=== PATIENT | male | born 1945 | race Caucasian/White ===

== ENCOUNTER → 2018-03-16 | Outpatient (CLI) | payer BC, OTHER ==
--- NOTE | 2018-03-29 23:48 | ONC ---
[address] [address] RADIATION ONCOLOGY NOTE Name: APARNA FLORES Room: [facility]#: [id number] Admission: 03/16/18 Attend Phys: Galdino Guerrero MD Discharge: Date of : 47 Report #: [id number] THIS REPORT FOR: //name// CC: Galdino Rivas MD DATE OF SERVICE: 03/16/2018 RADIATION ONCOLOGY PROCEDURE NOTE [facility] phone is [phone]. DATE OF PROCEDURE: 03/16/2018. REFERRING PHYSICIANS: Include: 1. Jorden Palmer M.D. 2. Govind Kulkarni DO. 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 He completed radiation treatments for that on 06/02/2016 and he also received stereotactic radiation treatments for a presumed early lung cancer by Dr. Geoff Edwards and this stereotactic treatment was performed on 04/12/2016. PROCEDURE: Nasopharyngolaryngoscopy. FINDINGS: On nasopharyngolaryngoscopy, after 2% viscous lidocaine was given orally and given via the right nostril with a cotton swab, there were no visible lesions in the right nasal cavity. There were no visible lesions in the nasopharynx or posterior oropharynx. The true vocal cords were normally mobile bilaterally. There was no evidence of head and neck cancer. There was no evidence of nasal cavity cancer. Thank you for allowing me to participate in the care of this patient. <ELECTRONICALLY SIGNED> By: Galdino Guerrero MD 03/29/18 2348 [id number] [id number] Guerrero MD /nt
--- NOTE | 2018-03-29 23:57 | ONC ---
[place] [address] RADIATION ONCOLOGY NOTE Name: APARNA FLORES Room: [facility]#: [id number] Admission: 03/16/18 Attend Phys: Galdino Guerrero MD Discharge: Date of : 47 Report #: [id number] THIS REPORT FOR: //name// CC: Galdino Rivas MD DATE OF SERVICE: 03/16/2018 REFERRING PHYSICIANS: 1. Govind Kulkarni DO 2. Jorden Palmer MD [facility] phone is [phone]. PRIMARY SITE AND HISTOPATHOLOGY: The patient received definitive radiation therapy for a stage I invasive poorly differentiated squamous cell carcinoma that involved the right nasal cavity. The patient completed radiation treatments on 06/02/2016 to that area. He also received stereotactic radiation treatments for a presumed early lung cancer and that was treated by Dr. Geoff Edwards. That treatment was completed on 04/12/2016. INTERVAL NOTE: The patient is eating a regular diet. He tries to avoid sweets. He has a lack of taste for sweets except strawberries. He is able to eat strawberries, at times. He likes salty foods and that includes food such as soups, sausage, and eggs. His nose tends to be on the dry side. He uses Aquaphor to help with moisturizing the skin around the nose area. MEDICATIONS: Singulair, Claritin as needed, simvastatin. SOCIAL HISTORY: The patient is retired from [employer]. Cigarettes: he quit smoking in October, he smoked about 1 pack per day for about 30 years prior to that time. REVIEW OF SYSTEMS: RESPIRATORY: The patient was not short of breath during his followup appointment. GASTROINTESTINAL: The patient has a good appetite. PHYSICAL EXAMINATION: VITAL SIGNS: The patient weighed 154.5 pounds on 03/16/2018. He was 159 pounds on 09/13/2018. and he said that he had weight loss because his used to cook their meals regularly but she cannot cook meals since she had shoulder surgery recently. Then, on 03/16/2018, blood pressure was 118/64, [place] [address] RADIATION ONCOLOGY NOTE Name: APARNA FLORES [place] Room: [facility]#: [id number] Admission: 03/16/18 Attend Phys: Galdino Guerrero MD Discharge: Date of : 47 Report #: [id number], respirations 18, oxygen saturation 96%. LYMPH NODES: He had no palpable cervical or supraclavicular lymphadenopathy. HEART: Had a regular rate and rhythm without murmur. LUNGS: were clear to auscultation. HEAD, EYES, EARS, NOSE AND THROAT: Mouth had no suspicious visible lesions or suspicious palpable lesions. Nasal cavity on the right side, had no suspicious visible lesions. The nasal cavity on the left side had no suspicious visible lesions. On nasopharyngolaryngoscopy, after application of 2% viscous lidocaine orally and 2% viscous lidocaine to the right nostril, there were no suspicious visible lesions in the right nostril or right nasal cavity. There were no visible lesions in the nasopharynx, Posterior pharynx, and the true vocal cords were normally mobile bilaterally. CARDIOVASCULAR: Heart had a regular rate and rhythm without murmur. LUNGS: were clear to auscultation. LABORATORY DATA: From 02/28/2018, TSH was 1.11. Sodium 139, potassium 4.3, BUN was 16, creatinine 1.01. RADIOLOGIC DATA: From 03/12/2018, neck CT did not reveal any evidence of recurrent tumor or metastatic disease. 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 ASSESSMENT AND PLAN: 1. History of nasal cavity cancer- There is no evidence of nasal cavity cancer at this time. A requisition will be written for a basic metabolic panel and a neck CT scan in August 2018. The patient will be asked to schedule a followup appointment to see me afterwards. 2. History of lung cancer- There is no evidence of lung cancer at this time. The patient will be given a requisition for a basic metabolic panel and also TSH in July of 2018 or August of [address] in August 2018. He will be asked to schedule a followup appointment to see me afterwards. The patient is trying to receive VA benefits for being exposed to Agent Pointblank and that could possibly be partly related to his lung cancer and that is listed on the VA website as one of the possible issues people can have after Agent Pointblank exposures. 3. Dental care- The patient is using fluoride trays with 1.1% PreviDent gel. He has been given prescriptions in the past [place] [address] RADIATION ONCOLOGY NOTE Name: APARNA FLORES Room: [facility]#: [id number] Admission: 03/16/18 Attend Phys: Galdino Guerrero MD Discharge: Date of : 47 Report #: [id number] Thank you for allowing me to participate in the care of this patient. <ELECTRONICALLY SIGNED> By: Galdino Guerrero MD 03/29/18 2357 1135 1234Dgriselda Guerrero MD /nt
== END ==
LOC: M.RTH 03-12 15:00
DX: C34.90 Malignant neoplasm of unspecified part of unspecified bronchus or lung (principal); Z85.22 Personal history of malignant neoplasm of nasal cavities, middle ear, and accessory sinuses

== ENCOUNTER → 2018-09-07 | Outpatient (CLI) | payer BC ==
--- NOTE | 2018-09-17 02:22 | ONC ---
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 He completed radiation treatments for that on 06/02/2016. He also received stereotactic radiation treatment for a presumed early lung cancer by Dr. Geoff Edwards and that stereotactic treatment was performed on 04/12/2016. PROCEDURE: Nasopharyngolaryngoscopy. FINDINGS: On nasopharyngolaryngoscopy after 2% viscous lidocaine was given orally and via the right nostril with a cotton swab, there were no visible lesions in the right nasal cavity. There were no visible lesions in the nasopharynx or posterior oropharynx and the true vocal cords were normally mobile bilaterally. There was no evidence of head and neck cancer. There is no evidence of nasal cavity cancer. Thank you for allowing me to participate in the care of this patient. <ELECTRONICALLY SIGNED> By: Galdino Guerrero MD 09/17/18 0222 1100 0015Galdino Guerrero MD /nt
--- NOTE | 2018-09-17 02:27 | ONC ---
[address] [address] RADIATION ONCOLOGY NOTE Name: MARKAPARNA D Room: [facility]#: [id number] Admission: 09/07/18 Attend Phys: Galdino Guerrero MD Discharge: Date of : 47 Report #: [id number] THIS REPORT FOR: //name// CC: Galdino Palmer MD DATE OF SERVICE: 09/07/2018 [facility] phone is [phone]. REFERRING PHYSICIANS: Jorden Palmer MD; Govind Kulkarni DO and Geoff Edwards MD. PRIMARY SITE AND HISTOPATHOLOGY: The patient received definitive radiation therapy for a stage I invasive poorly differentiated squamous cell carcinoma that involved the right nasal cavity. The patient completed radiation treatments on 06/02/2016 to that area. He also received stereotactic radiation treatments for a presumed early lung cancer that was treated by Dr. Geoff Edwards, and that treatment was completed on 04/12/2016. INTERVAL NOTE: The patient is eating a regular diet. He tries to avoid sweet foods. He likes to eat salty foods. MEDICATIONS: Include simvastatin and aspirin. SOCIAL HISTORY: The patient is retired from [employer]. Cigarettes: he quit smoking in October 2004. He smoked about 1 pack per day for about 30 years prior to that time. REVIEW OF SYSTEMS: RESPIRATORY: The patient was not short of breath during his followup appointment. GASTROINTESTINAL: The patient has a good appetite. PHYSICAL EXAMINATION: VITAL SIGNS: The patient weighed 160.2 pounds on 09/07/2018 and 154.5 pounds on 03/16/2018. On 09/07/2018, blood pressure was 128/73, pulse 91, respirations 20, oxygen saturation 100%. LYMPH NODES: He had no palpable cervical or supraclavicular lymphadenopathy. HEAD, EYES, EARS, NOSE AND THROAT: Mouth had no suspicious visible lesions or suspicious palpable lesions. Nasal cavity on the right side, had no suspicious visible lesions. The nasopharynx had no visible lesions and that was done after application of 2% viscous lidocaine orally and 2% [place] [address] RADIATION ONCOLOGY NOTE Name: APARNA FLORES Room: [facility]#: [id number] Admission: 09/07/18 Attend Phys: Galdino Guerrero MD Discharge: Date of : 47 Report #: [id number] nostril. The right nasal cavity had no suspicious visible lesions and the nasopharynx had no suspicious visible lesions. The oropharynx had no suspicious visible lesions. True vocal cords were normally mobile bilaterally with no visible lesions. CARDIOVASCULAR: Heart had a regular rate and rhythm without murmur. LUNGS: were clear to auscultation. LABORATORY DATA: From 09/03/2018, sodium was 138, potassium 4.4, BUN 14, creatinine 0.98. TSH was 1.18, which was within normal limits. RADIOLOGIC DATA: Neck and chest CT from 09/03/2018, neck showed previous treatment with no evidence of tumor recurrence or cervical lymphadenopathy. 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 ASSESSMENT AND PLAN: 1. History of nasal cavity cancer- There is no evidence of head and neck cancer at this time. A requisition was written for a basic metabolic panel and TSH as well as a neck CT in February 2019. The patient was asked to schedule a followup appointment to see me afterwards. 2. History of lung cancer-A Basic metabolic panel was ordered as well as a chest CT in February 2019. The patient was asked to schedule a followup appointment to see me afterwards. 3. Dental care. The patient was given a refill for his 1.1% fluoride to use with his fluoride trays. Thank you for allowing me to participate in the care of this patient. <ELECTRONICALLY SIGNED> By: Galdino Guerrero MD 09/17/18 0227 1108 0022Dgrsielda Guerrero MD /nt
== END ==
LOC: M.RTH 04:43
DX: Z08 Encounter for follow-up examination after completed treatment for malignant neoplasm (principal); Z85.22 Personal history of malignant neoplasm of nasal cavities, middle ear, and accessory sinuses; Z85.118 Personal history of other malignant neoplasm of bronchus and lung

== ENCOUNTER → 2019-03-08 | Outpatient (CLI) | payer BC ==
--- NOTE | ~2019-03-08 | ONC ---
[place] [address] RADIATION ONCOLOGY NOTE Name: APARNA FLORES Room: [facility]#: [id number] Admission: 03/08/19 Attend Phys: Galdino Guerrero MD Discharge: Date of : 47 Report #: [id number] THIS REPORT FOR: //name// CC: Galdino Kulkarni DATE OF SERVICE: 03/08/2019 REFERRING PHYSICIANS: Include Jorden Palmer MD; Geoff Edwards MD; Govind Kulkarni DO. [facility] phone is [phone]. PRIMARY SITE AND HISTOPATHOLOGY: The patient received definitive radiation therapy for stage 1 invasive poorly differentiated squamous cell carcinoma that involved the right nasal cavity. The patient also completed radiation treatments on 06/02/2016 to that area. He also received stereotactic radiation treatments for presumed early lung cancer that was treated by Dr. Geoff Edwards and that treatment was completed on 04/12/2016. INTERVAL NOTE: The patient indicated that he is eating a regular diet. He tends to avoid sweet foods. He tends to like salty foods more. MEDICATIONS: Include simvastatin and aspirin. SOCIAL HISTORY: The patient is retired from [employer]. Cigarettes, he quit smoking in 10/2004, he smoked about 1 pack per day for about 30 years prior to that time. REVIEW OF SYSTEMS: RESPIRATORY: The patient was not short of breath during his followup appointment. GASTROINTESTINAL: The patient has a good appetite. PHYSICAL EXAMINATION: VITAL SIGNS: The patient weighed 157.4 pounds on 03/08/2019. He bma108.2 pounds in 08/2018. He was 154.5 pounds on 03/16/2018. On 03/08/2019, blood pressure is 154/71, pulse 84, respirations 18, oxygen saturation was 97%. LYMPH NODES: The patient had no palpable cervical or supraclavicular lymphadenopathy. HEAD, EYES, EARS, NOSE, AND MOUTH: Mouth had no suspicious visible lesions or suspicious palpable lesions. The patient's teeth looked like they were in good shape. The right nasal cavity had no suspicious visible lesions. The left nasal cavity had no suspicious visible lesions. HEART: Had a regular rate and rhythm without murmur. LUNGS: [place] [address] RADIATION ONCOLOGY NOTE Name: APARNA FLORES Room: [facility]#: [id number] Admission: 03/08/19 Attend Phys: Galdino Guerrero MD Discharge: Date of : 47 Report #: [id number] LABORATORY DATA: The patient's creatinine was 0.9 on 03/04/2019. His TSH was 1.14 on 03/04/2019. RADIOLOGIC DATA: From 03/04/2019, the neck CT showed no evidence of local tumor recurrence or cervical lymphadenopathy. 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 He had probable focal mucus plugging within the right lower lobe bronchus and a followup CT was recommended in 3-6 months. ASSESSMENT AND PLAN: 1. History of nasal cavity cancer. The patient has no evidence of head and neck cancer at this time. He indicated he will be seeing his ear, nose, throat physician in about 3 months. The patient had a requisition written for a basic metabolic panel and TSH in about 6 months as well as a neck CT and the patient was asked to follow up with me after those studies are complete. 2. History of lung cancer. A basic metabolic panel was ordered as well as a chest CT in about 6 months and the patient was asked to follow up with me afterwards. 3. Possible upper respiratory infection -- the patient had what appeared to be mucus plugging, so he was given a 5-day course of azithromycin for assumed upper respiratory infection. 4. Dental care. The patient was given a refill for his 1.1% fluoride to use with his fluoride trays. Thank you for allowing me to participate in the care of this patient. By: 1230 [id number] Guerrero MD /aryan
== END ==
LOC: M.RTH 10:59
DX: Z08 Encounter for follow-up examination after completed treatment for malignant neoplasm (principal); Z85.118 Personal history of other malignant neoplasm of bronchus and lung; Z85.22 Personal history of malignant neoplasm of nasal cavities, middle ear, and accessory sinuses

== ENCOUNTER → 2019-09-06 | Outpatient (CLI) | payer BC ==
--- NOTE | ~2019-09-06 | ONC ---
[address] [address] RADIATION ONCOLOGY NOTE Name: APARNA FLORES Room: [facility]#: [id number] Admission: 09/06/19 Attend Phys: Galdino Guerrero MD Discharge: Date of : 47 Report #: [id number] THIS REPORT FOR: //name// CC: Galdino Kulkarni DATE OF SERVICE: 09/06/2019 REFERRING PHYSICIANS: Include Dr. Govind Kulkarni, Dr. Geoff Edwards, Dr. Jorden Palmer and [facility] phone is [phone]. PRIMARY SITE AND HISTOPATHOLOGY: The patient received definitive radiation therapy for stage 1 invasive poorly differentiated squamous cell carcinoma that involved the right nasal cavity. The patient completed radiation treatments on 06/02/2016 to that area. He also received stereotactic radiation treatments for presumed early lung cancer that was treated by Dr. Geoff Edwards; that treatment was completed on 04/12/2016. INTERVAL NOTE: The patient is eating a regular diet. He does feel like salty foods. He likes to eat foods such as chicken and tends to avoid very sweet foods. He feels like he said he is eating well. MEDICATIONS: Include simvastatin and aspirin. SOCIAL HISTORY: The patient is retired from [employer]. Cigarettes: He quit smoking in October 2004; he smoked about 1 pack per day for about 30 years prior to that time. REVIEW OF SYSTEMS: RESPIRATORY: The patient was not short of breath during his followup. GASTROINTESTINAL: The patient had a good appetite. PHYSICAL EXAMINATION: VITAL SIGNS: The patient weighed 159.6 pounds on 09/06/2019. It was 157.4 pounds on 03/08/2019. On 09/06/2019 blood pressure was 118/85, pulse 100, respirations 20, and oxygen saturation is 98% on room air. LYMPH NODES: The patient had no palpable cervical or supraclavicular lymphadenopathy. HEAD, EYES, EARS, NOSE AND THROAT: Mouth had no suspicious visible lesions or suspicious palpable lesions. The patient's teeth look like they were in very good shape. The right nasal cavity had no suspicious visible lesions in the left nasal cavity, no suspicious visible lesions. HEART: Had a regular rate and rhythm without murmur. LUNGS: Clear to auscultation. ABDOMEN: Not tender, spleen was not palpable and liver was [place] [address] RADIATION ONCOLOGY NOTE Name: APARNA FLORES Room: [facility]#: [id number] Admission: 09/06/19 Attend Phys: Galdino Guerrero MD Discharge: Date of : 47 Report #: [id number] LABORATORY DATA: From 08/27/2019, sodium was 139, potassium 4.4, BUN was 15, creatinine was 0.86. TSH was 1.27, which was within normal limits. RADIOLOGIC DATA: From 08/27/2019, chest CT showed no evidence of thoracic metastatic disease and the neck CT showed no recurrent soft tissue mass or cervical lymphadenopathy. ASSESSMENT AND PLAN: 1. History of nasal cavity cancer. There is no evidence of nasal cavity cancer at this time. Requisition was written for a metabolic panel and TSH followed by a neck CT in April 2020 and the patient was asked to schedule a followup appointment to see me afterwards. 2. History of lung cancer. The patient had a basic metabolic panel ordered as well as a chest CT in about 8 months and the patient was asked to schedule a followup appointment to see me afterwards. 3. Dental care. The patient was given a refill for 1.1% fluoride gel/paste to use for dental care. Thank you for allowing me to participate in the care of this patient. By: 1136 [id number] Guerrero MD /aryan
== END ==
LOC: M.RTH 04:59
DX: Z08 Encounter for follow-up examination after completed treatment for malignant neoplasm (principal); Z85.118 Personal history of other malignant neoplasm of bronchus and lung; Z85.22 Personal history of malignant neoplasm of nasal cavities, middle ear, and accessory sinuses

== ENCOUNTER → 2020-05-08 | Outpatient (CLI) | payer BC ==
--- NOTE | 2020-05-10 17:45 | ONC ---
[address] [address] RADIATION ONCOLOGY NOTE Name: APARNA FLORES Room: [facility]#: [id number] Admission: 05/08/20 Attend Phys: Galdino Guerrero MD Discharge: Date of : 47 Report #: [id number] THIS REPORT FOR: //name// CC: Galdino Palmer MD DATE OF PROCEDURE: 05/08/2020 RADIATION ONCOLOGY PROCEDURE NOTE [facility] phone is [phone]. PRIMARY SITE AND HISTOPATHOLOGY: The patient received definitive radiation therapy for a stage I invasive poorly differentiated squamous cell cancer that involved the right nasal cavity. The patient completed radiation treatments on 06/02/2016 to that area. He also received stereotactic radiation treatments for a presumed early lung cancer that was treated by Dr. Geoff Edwards and that treatment was completed on 04/12/2016. PROCEDURE: Nasopharyngolaryngoscopy. FINDINGS: On nasopharyngolaryngoscopy, after administration of 2% viscous lidocaine orally and 2% viscous lidocaine to the right nostril, there were no visible lesions in the right nasal cavity. There were no visible lesions in the nasopharynx, there were no visible lesions in the posterior oropharynx. The true vocal cords were normally mobile bilaterally without any visible lesions. There was no evidence of head and neck cancer. Thank you for allowing me to participate in the care of this patient. <ELECTRONICALLY SIGNED> By: Galdino Guerrero MD 05/10/20 1745 1339 1412Dgriselda Guerrero MD /nt
--- NOTE | 2020-05-10 17:55 | ONC ---
[address] [address] RADIATION ONCOLOGY NOTE Name: MARKAPARNA D Room: [facility]#: [id number] Admission: 05/08/20 Attend Phys: Galdino Guerrero MD Discharge: Date of : 47 Report #: [id number] THIS REPORT FOR: //name// CC: Galdino Edwards MD RADIATION ONCOLOGY FOLLOWUP NOTE The patient was seen on 05/08/2020. [facility] REFERRING PHYSICIANS: Dr. Jorden Palmer, Dr. Govind Kulkarni, Dr. Geoff Edwards. PRIMARY SITE AND HISTOPATHOLOGY: The patient received definitive radiation therapy for a stage I invasive poorly differentiated squamous cell carcinoma involving the right nasal cavity. The patient completed radiation treatments on 06/02/2016 to that area. He also received stereotactic radiation treatments for a presumed early lung cancer that was treated by Dr. Geoff Edwards and that was completed on 04/12/2016. INTERVAL NOTE: The patient is eating a regular diet. He tries to avoid very sweet foods. He likes salty foods, like chicken. MEDICATIONS: Include simvastatin and aspirin. SOCIAL HISTORY: The patient is retired from [employer]. Cigarettes: He quit smoking in 10/2004. He smoked about 1 pack per day for about 30 years prior to that time. REVIEW OF SYSTEMS: RESPIRATORY: The patient was not short of breath during his appointment. GASTROINTESTINAL: The patient has a good appetite. PHYSICAL EXAMINATION: VITAL SIGNS: The patient weighed 156.2 pounds on 05/08/2020, 159.6 pounds on 09/06/2019. On 05/08/2020, blood pressure was 133/80, pulse 87, temperature 97.9 degrees Fahrenheit, oxygen saturation 93%, respirations 16. LYMPH NODES: He had no palpable cervical or supraclavicular lymphadenopathy. EYES, EARS, NOSE AND THROAT: Mouth had no visible suspicious lesions and there were no suspicious palpable lesions involving the nose. Right nose, the right nasal cavity,had no suspicious visible lesions. Left nasal cavity, had no suspicious visible lesions. On nasopharyngolaryngoscopy, after applying 2% viscous lidocaine to the right nostril and 2% viscous lidocaine orally, there were no visible lesions in the right nasal cavity or the nasopharynx. There were no [place] [address] RADIATION ONCOLOGY NOTE Name: APARNA FLORES Room: [facility]#: [id number] Admission: 05/08/20 Attend Phys: Galdino Guerrero MD Discharge: Date of : 47 Report #: [id number] oropharynx. There were no visible lesions involving the true vocal cords and the true vocal cords were normally mobile bilaterally. LABORATORY DATA: From 04/29/2020, TSH 0.95. Sodium 138, potassium 4.5, BUN 17, creatinine 1.02. RADIOLOGIC DATA: From 04/30/2020, chest CT showed some stable lung nodules with no suspicious acute findings. There were some post-treatment changes in the right lung apex that was treated. ASSESSMENT AND PLAN: 1. History of nasal cavity cancer- There is no evidence of head and neck cancer at this time. A basic metabolic panel and TSH was ordered in 10/2020. The patient was asked to schedule a followup appointment to see me afterwards. 2. History of lung cancer- There is no evidence of lung cancer at this time. A Basic metabolic panel and chest CT were ordered in about 10/2020 and the patient was asked to schedule a followup appointment to see me afterwards. 3. Dental care- The patient was given a refill for his 1.1% fluoride to use with his fluoride trays. Thank you for allowing me to participate in the care of this patient. <ELECTRONICALLY SIGNED> By: Galdino Guerrero MD 05/10/20 1755 1342 1444Dgriselda Guerrero MD /nt
== END ==
LOC: M.RTH 10:30
PROVIDERS: ATTEND Radiology Radiation Oncology
DX: Z08 Encounter for follow-up examination after completed treatment for malignant neoplasm (principal); Z85.22 Personal history of malignant neoplasm of nasal cavities, middle ear, and accessory sinuses

== ENCOUNTER → 2020-11-13 | Outpatient (CLI) | payer BC ==
--- NOTE | ~2020-11-13 | PROC ---
[facility] [address] [place] [address] PROCEDURE REPORT Name: MARKAPARNA Torin Room: [facility]#: [id number] Admission: 11/13/20 Attend Phys: Galdino Guerrero MD Discharge: Date of : 47 Report #: [id number] THIS REPORT FOR: cc: Govind Kulkarni David DO ~ Keleti, Daniel MD DATE OF SERVICE: 11/13/2020 REFERRING PHYSICIANS: Dr. Govind Kulkarni, Dr. Geoff Edwards; Jorden Palmer MD; [facility]. Phone is [phone]. 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 The patient completed radiation treatments on 06/02/2016 to that area. He also received stereotactic radiation treatments for presumed early lung cancer that was treated by Dr. Geoff Edwards that treatment was completed on 04/12/2016. PROCEDURE: Nasopharyngolaryngoscopy. FINDINGS: On nasopharyngolaryngoscopy, after administration of 2% viscous lidocaine orally and 2% viscous lidocaine to the right nostril. There were no visible lesions in the right nasal cavity. There were no visible lesions in the nasopharynx. There were no visible lesions in the posterior oropharynx. True vocal cords were normally mobile bilaterally without any visible lesions. There was no evidence of head and neck cancer. Thank you for allowing me to participate in the care of this patient. By: [id number] Alethea Guerrero MD /aryan
--- NOTE | ~2020-11-13 | ONC ---
[address] [address] RADIATION ONCOLOGY NOTE Name: APARNA FLORES Torin Room: [facility]#: [id number] Admission: 11/13/20 Attend Phys: Galdino Guerrero MD Discharge: Date of : 47 Report #: [id number] THIS REPORT FOR: cc: Govind Kulkarni David DO ~ Galdino Guerrero MD DATE OF SERVICE: 11/13/2020 RADIATION ONCOLOGY FOLLOWUP NOTE REFERRING PHYSICIANS: Govind Kulkarni DO; Jorden Palmer MD; Geoff Edwards MD [facility] phone is [phone]. 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 The patient completed radiation treatments on 06/02/2016 to that area. He also received stereotactic radiation treatment for presumed early lung cancer that was treated by Dr. Geoff Edwards and that was completed on 04/12/2016. INTERVAL NOTE: The patient is eating a regular diet. He tends to like salty foods like chicken. He tries to avoid sweet foods. MEDICATIONS: Include simvastatin and aspirin. SOCIAL HISTORY: The patient is retired from [employer]. Cigarettes, he quit smoking in 10/2004. Smoked about 1 pack per day for about 30 years prior to that time. REVIEW OF SYSTEMS: RESPIRATORY: The patient was not short of breath during his appointment. GASTROINTESTINAL: The patient has a good appetite. PHYSICAL EXAMINATION: VITAL SIGNS: The patient weighed 158 pounds on 11/13/2020. He was 156.2 pounds on 05/08/2020 and on 11/13/2020, blood pressure is 158/88, pulse 100, respirations 20, oxygen saturation 94%, temperature was 98.4 degrees Fahrenheit. LYMPH NODES: The patient had no palpable cervical or supraclavicular lymphadenopathy. HEAD, EYES, EARS, NOSE AND THROAT: Mouth had no suspicious visible lesions or suspicious palpable lesions. There were no visible lesions in the right nasal cavity or left nasal cavity. On nasopharyngolaryngoscopy, after applying 2% viscous lidocaine to the right nostril and 2% viscous lidocaine orally, there were no visible lesions in the right nasal cavity or nasopharynx, no visible lesions in the posterior oropharynx and [place] [address] RADIATION ONCOLOGY NOTE Name: APARNA FLORES Room: [facility]#: [id number] Admission: 11/13/20 Attend Phys: Galdino Guerrero MD Discharge: Date of : 47 Report #: [id number] vocal cords. The true vocal cords are normally mobile bilaterally. LABORATORY DATA: From 11/03/2020, sodium 137, potassium 4.3, BUN 23, creatinine was 0.9 and calcium was 10. TSH was 1.34. RADIOLOGIC DATA: Neck CT from 11/03/2020 revealed no evidence of residual or recurrent soft tissue mass or cervical lymphadenopathy. Chest CT revealed unchanged consolidation within the right lung apex consistent with post-radiation fibrosis. Tiny subcentimeter nodules in the right and left lung, which are stable and appear consistent with scarring with severe emphysema and mild calcific coronary artery disease. ASSESSMENT AND PLAN: 1. History of nasal cavity cancer. Lab work was ordered in about 6 months and the patient was asked to schedule a followup appointment to see me afterwards. 2. History of lung cancer. There is no evidence of lung cancer at this time. Lab work was ordered in 6 months and the patient will be asked to follow up with me afterwards. 3. Dental care. The patient will be given a refill for his 1.1% fluoride. Thank you for allowing me to participate in the care of this patient. By: [id number] Guerrero MD /aryan
== END | disposition home or self-care (01) ==
LOC: M.RTH 11-06 11:15
PROVIDERS: ATTEND Radiology Radiation Oncology
DX: Z08 Encounter for follow-up examination after completed treatment for malignant neoplasm (principal); Z85.828 Personal history of other malignant neoplasm of skin; Z85.118 Personal history of other malignant neoplasm of bronchus and lung; Z98.890 Other specified postprocedural states